=== PATIENT | male | born 1930 | race Caucasian/White ===

== ENCOUNTER → 2016-10-03 | Outpatient (CLI) | payer OTHER, BC ==
[~2016-10-03] MED LIST: KRILL OIL500 MG PO; LISINOPRIL10 MG PO; LISINOPRIL20 MG PO; LOPID600 MG PO; METAMUCIL PLUS1 EACH PO; OMEGA-3 KRILL1 EACH PO; PSYLLIUM0.4 GM PO; TRAMADOL HCL50 MG PO; VISINE TEARS DR30 ML BOTH EYES
== END | disposition home or self-care (01) ==
LOC: RAD 09-26 10:00
DX: I69.391 Dysphagia following cerebral infarction (principal)
CPT/HCPCS: 74230; 92611 GN; G8996 GN CI; G8997 GN CI; G8998 GN CI

== ENCOUNTER 2017-05-24 10:25 | Emergency (ER) | payer OTHER, BC ==
[~2017-05-24] VITALS: Ht 167.6 cm; Wt 65.0 kg
[2017-05-24 11:39] LABS: EOSINOPHIL (%) 1.5 % (0-5); EOSINOPHIL COUNT 0.1 K/uL (0-0.3); HEMATOCRIT 26.7 % (38.0-50.0); IMMATURE GRANULOCYTE (%) 0.3 % (0.0-0.7); LYMPHOCYTE COUNT 0.8 K/uL (1.0-2.8); MCH 29.2 PG (29.0-34.0); MCHC 31.8 G/DL (30.0-36.0); MCV 91.8 FL (86-99); MEAN PLAT.VOLUME 10.8 uM^3 (9.0-12.4); MONOCYTE (%) 14.8 % (3-12); MONOCYTE COUNT 0.5 K/uL (0-0.8); NEUTROPHIL (%) 60.1 % (45-76); PLATELET COUNT 79 K/uL (156-360); RBC DIS.WIDTH-CV 15.1 % (11.8-14.6); RED BLOOD COUNT 2.91 M/uL (4.00-5.50); WHITE BLOOD COUNT 3.3 K/uL (4.1-10.2)
[2017-05-24 11:44] LABS: INTER. NORMALIZED RATIO 1.2; PROTHROMBIN TIME 13.6 SEC (10.2-12.9)
[2017-05-24 11:55] LABS: CHLORIDE 104 mEq/L (99-109); SODIUM 138 mEq/L (136-147)
[2017-05-24 11:56] LABS: GLUCOSE 103 mg/dL (70-99)
[2017-05-24 11:58] LABS: ANION GAP 8 MEQ/L (2-14)
[2017-05-24 12:00] LABS: GFR ESTIMATE (CALCULATED) > 59 mL/min/
[2017-05-24 12:01] LABS: UREA NITROGEN (BUN) 17 mg/dL (9-23)
[2017-05-24 13:45] VITALS: BP 98/71
== END 2017-05-24 13:45 | disposition home or self-care (01) ==
LOC: EME 10:25
PROVIDERS: Emergency Medicine
PROC: 0HQCXZZ Repair Left Upper Arm Skin, External Approach (ICD-10-PCS; principal; 2017-05-24)
DX: S41.132A Puncture wound without foreign body of left upper arm, initial encounter (principal); W26.8XXA Contact with other sharp object(s), not elsewhere classified, initial encounter; R23.3 Spontaneous ecchymoses; I10 Essential (primary) hypertension; E78.5 Hyperlipidemia, unspecified; I71.4 Abdominal aortic aneurysm, without rupture; Z66 Do not resuscitate; Z87.891 Personal history of nicotine dependence
CPT/HCPCS: 73060; 80048; 85025; 85610; 99281; 99284